=== PATIENT | female | born 1955 | race Caucasian/White ===

== ENCOUNTER → 2018-12-29 09:11 | Outpatient (CLI) | payer BC | END | disposition home or self-care (01) | LOC: D.RAD 12-26 10:30 | PROVIDERS: ATTEND Internal Medicine Gastroenterology | DX: R13.10 Dysphagia, unspecified (principal) ==

== ENCOUNTER → 2019-01-17 10:40 | Outpatient (CLI) | payer BC | END | disposition home or self-care (01) | LOC: D.OPS 10:40 | PROVIDERS: ATTEND Internal Medicine Gastroenterology | DX: K21.9 Gastro-esophageal reflux disease without esophagitis (principal); R12 Heartburn; R13.10 Dysphagia, unspecified ==